=== PATIENT | female | born 1935 | race Caucasian/White ===

== ENCOUNTER → 2016-10-14 | Outpatient (CLI) | payer MEDICARE ==
--- NOTE | 2016-10-14 10:54 | PCVCIMAG ---
EXAM: BILATERAL RENAL ULTRASOUND AND LEFT RENAL DUPLEX INDICATION: Hypertension FINDINGS: Right kidney: Surgically absent Left kidney: Length measures 9.8 cm. No hydronephrosis or extensive renal scarring. There is a 1.4 x 1.8 cm hypoechoic focus in the mid to upper pole centrally. This could represent a complex cyst, a small mass, or a dilated calyx with debris. Further evaluation with renal CT examination would be helpful. Left renal duplex: Adequate technical quality. No sonographic evidence of renal artery stenosis. The aortic to renal artery ratio is 0.9. The renal vein is patent. Bladder: No obvious abnormalities. IMPRESSION: Previous right nephrectomy. No left renal artery stenosis. 1.8 cm hypoechoic indeterminate focus mid/upper pole left kidney as described. LOC:[id number]
--- NOTE | 2016-10-14 14:30 | PCVCIMAG ---
APPROVED REPORT Study performed: 10/14/2016 08:23:01 EXAM: Comprehensive 2D, Doppler, and color-flow Echocardiogram Status: routine Other Information Study Quality: Fair Indications Cardiomegaly Hypertension/HDD Renal Disease 2D Dimensions IVSd: 11.48 (7-11mm)LVOT Diam: 16.12 (18-24mm) LVDd: 45.30 mm PWd: 10.85 (7-11mm)Ascending Ao: 30.26 (22-36mm) LVDs: 39.89 (25-40mm) Left Atrium: 43.41 (27-40mm) Aortic Root: 25.67 mm LV Single Plane 4CH: 14.78 % LV Single Plane 2CH: 21.59 %Isabel's LVEF: 18.18 % Biplane EF: 17.2 % Volumes Left Atrial Volume (Systole) Single Plane 4CH: 52.54 mLSingle Plane 2CH: 51.29 mL LA ESV Index: 29.00 mL/m2 Aortic Valve AoV Peak Luciano.: 1.23 m/s AO Peak Gr.: 6.09 mmHgLVOT Max P.90 mmHg LVOT Max V: 0.99 m/s ERIN Vmax: 1.63 cm2 Mitral Valve E/A Ratio: 1.4 MV Decel. Time: 137.96 ms MV E Max Luciano.: 0.93 m/s MV A Luciano.: 0.68 m/s IVRT: 152.25 ms Pulmonary Valve PV Peak Gr.: 1.99 mmHg Tricuspid Valve TR Peak Luciano.: 3.88 m/s TR Peak Gr.: 60.13 mmHg Left Ventricle The left ventricle is normal size. Mild concentric left ventricular hypertrophy. Left ventricular ejection fraction is severely decreased. LVEF is 10-15%. Right Ventricle The right ventricle is normal size. The right ventricular systolic function is normal. Atria The left atrium size is normal. The right atrium size is normal. Aortic Valve The aortic valve is normal in structure. No aortic regurgitation is present. There is no aortic valvular stenosis. Mitral Valve The mitral valve is normal in structure. There is no mitral valve regurgitation noted. No evidence of mitral valve stenosis. Tricuspid Valve The tricuspid valve is normal in structure. Mild to moderate tricuspid regurgitation. Pulmonary artery pressure is 70mmhg. Pulmonic Valve The pulmonary valve is normal in structure. Trace pulmonic regurgitation. Great Vessels The aortic root is normal in size. IVC is normal in size and collapses with >50% inspiration Pericardium There is no pericardial effusion. <Conclusion> The left ventricle is normal size. Mild concentric left ventricular hypertrophy. Left ventricular ejection fraction is severely decreased. LVEF is 10-15%. The right ventricle is normal size. The left atrium size is normal. The right atrium size is normal. The aortic valve is normal in structure. Mild to moderate tricuspid regurgitation. Pulmonary artery pressure is 70mmhg. There is no mitral valve regurgitation noted. The aortic root is normal in size. There is no pericardial effusion.
== END | disposition home or self-care (01) ==
LOC: PCVCIMAG 07:26
PROVIDERS: ATTEND Internal Medicine Cardiovascular Disease
DX: N28.9 Disorder of kidney and ureter, unspecified (principal); I07.1 Rheumatic tricuspid insufficiency; I37.1 Nonrheumatic pulmonary valve insufficiency; I11.0 Hypertensive heart disease with heart failure; I50.21 Acute systolic (congestive) heart failure; Z90.5 Acquired absence of kidney; Z88.2 Allergy status to sulfonamides; Z79.899 Other long term (current) drug therapy
CPT/HCPCS: 76770; 93005; 93306; 93975; G0463

== ENCOUNTER → 2016-11-26 | Outpatient (CLI) | payer MEDICARE ==
--- NOTE | 2016-11-26 16:37 | PCVCIMAG ---
APPROVED REPORT Study performed: 11/26/2016 13:10:13 EXAM: Limited 2D and color flow Echocardiogram Patient Location: Echo lab Status: routine BSA: 1.71 HR: 58 bpmBP: 112/58 mmHg Other Information Study Quality: Adequate Risk Factors: Cardiac Risk Factors: HTN,RENAL DISEASE Indications Cardiomegaly Cardiomyopathy Hypertension/HDD 2D Dimensions LVEF(%): 48.01 (>50%) IVSd: 7.35 (7-11mm)LVOT Diam: 18.89 (18-24mm) LVDd: 48.32 mm PWd: 10.13 (7-11mm)Ascending Ao: 29.95 (22-36mm) LVDs: 36.64 (25-40mm) Left Atrium: 29.37 (27-40mm) Aortic Root: 23.10 mm LV Single Plane 4CH: 28.56 % LV Single Plane 2CH: 47.50 %Isabel's LVEF: 38.03 % Biplane EF: 38.4 % Volumes Left Atrial Volume (Systole) Single Plane 4CH: 34.99 mLSingle Plane 2CH: 90.20 mL Biplane LA Volume: 60.00 mLLA ESV Index: 35.00 mL/m2 Tricuspid Valve TR Peak Luciano.: 2.42 m/s TR Peak Gr.: 23.52 mmHg TV Vmax: 0.50 m/sPA Pressure: 31.00 mmHg Left Ventricle The left ventricle is normal size. There is normal left ventricular wall thickness. Left ventricular systolic function is mild to moderately decreased globallt.. Discordant septal motion. LVEF is 38%. The left ventricular diastolic function is normal. Right Ventricle The right ventricle is normal size. The right ventricular systolic function is normal. Atria Left atrium is mildly dilated. The right atrium size is normal. Aortic Valve The aortic valve is normal in structure. No aortic regurgitation is present. There is no aortic valvular stenosis. Mitral Valve The mitral valve is normal in structure. There is no mitral valve regurgitation noted. No evidence of mitral valve stenosis. Tricuspid Valve The tricuspid valve is normal in structure. Mild tricuspid regurgitation with a PA pressure of 31mmHg. Pulmonic Valve The pulmonary valve is normal in structure. There is no pulmonic valvular regurgitation. Great Vessels The aortic root is normal in size. IVC is normal in size and collapses with >50% inspiration Pericardium There is no pericardial effusion. There is no pleural effusion. <Conclusion> There is normal left ventricular wall thickness. Left ventricular systolic function is mild to moderately decreased globallt.. Discordant septal motion. LVEF is 38%. The left ventricular diastolic function is normal. The right ventricle is normal size. Left atrium is mildly dilated. There is no mitral valve regurgitation noted. Mild tricuspid regurgitation with a PA pressure of 31mmHg. There is no pericardial effusion.
== END | disposition home or self-care (01) ==
LOC: PCVCIMAG 12:53
PROVIDERS: ATTEND Internal Medicine Cardiovascular Disease
DX: I07.1 Rheumatic tricuspid insufficiency (principal); I11.0 Hypertensive heart disease with heart failure; I50.21 Acute systolic (congestive) heart failure; N17.9 Acute kidney failure, unspecified; E87.5 Hyperkalemia; I49.3 Ventricular premature depolarization; I44.7 Left bundle-branch block, unspecified; I42.9 Cardiomyopathy, unspecified; Z90.5 Acquired absence of kidney; Z88.2 Allergy status to sulfonamides; Z88.1 Allergy status to other antibiotic agents; Z79.899 Other long term (current) drug therapy
CPT/HCPCS: 93005; 93308; G0463

== ENCOUNTER → 2017-04-05 | Outpatient (CLI) | payer MEDICARE | END | disposition home or self-care (01) | LOC: PCVCCLINIC 13:07 | PROVIDERS: ATTEND Internal Medicine Cardiovascular Disease | DX: I12.9 Hypertensive chronic kidney disease with stage 1 through stage 4 chronic kidney disease, or unspecified chronic kidney disease (principal); I42.9 Cardiomyopathy, unspecified; N18.3 Chronic kidney disease, stage 3 (moderate); Z79.899 Other long term (current) drug therapy | CPT/HCPCS: 93005; G0463 ==

== ENCOUNTER → 2017-07-14 | Outpatient (CLI) | payer MEDICARE | END | disposition home or self-care (01) | LOC: PCVCIMAG 13:07 | DX: I34.0 Nonrheumatic mitral (valve) insufficiency (principal); I42.9 Cardiomyopathy, unspecified; I12.9 Hypertensive chronic kidney disease with stage 1 through stage 4 chronic kidney disease, or unspecified chronic kidney disease; N18.3 Chronic kidney disease, stage 3 (moderate); I44.7 Left bundle-branch block, unspecified; Z79.899 Other long term (current) drug therapy | CPT/HCPCS: 93005; 93306; G0463 ==

== ENCOUNTER → 2018-01-19 | Outpatient (CLI) | payer MEDICARE | END | disposition home or self-care (01) | LOC: PCVCCLINIC 14:00 | PROVIDERS: ATTEND Internal Medicine Cardiovascular Disease | DX: I42.9 Cardiomyopathy, unspecified (principal); I10 Essential (primary) hypertension; E78.00 Pure hypercholesterolemia, unspecified; I25.10 Atherosclerotic heart disease of native coronary artery without angina pectoris; I44.7 Left bundle-branch block, unspecified | CPT/HCPCS: 93005; G0463 ==

== ENCOUNTER → 2018-01-19 | Outpatient (CLI) | payer MEDICARE ==
--- NOTE | 2018-01-19 15:35 | PCVCIMAG ---
APPROVED REPORT Study performed: 01/19/2018 14:48:20 EXAM: Limited 2D Echocardiogram Patient Location: Echo lab Room #: 2Status: routine BSA: 1.74 HR: 61 bpmBP: 129/81 mmHg Rhythm: LBBB Other Information Study Quality: Adequate Risk Factors: Cardiac Risk Factors: HTN, Hyperlipidemia Indications CAD Cardiomyopathy Hypertension/HDD 2D Dimensions LV Single Plane 4CH: 51.04 % LV Single Plane 2CH: 53.39 % Biplane EF: 49.9 % Tricuspid Valve TR Peak Luciano.: 2.83 m/s TR Peak Gr.: 32.10 mmHg Left Ventricle The left ventricle is normal size. Left ventricular systolic function is low normal. LVEF is 50-55%. Right Ventricle The right ventricle is normal size. The right ventricular systolic function is normal. Atria The left atrium size is normal. The right atrium size is normal. Aortic Valve The aortic valve is normal in structure. No aortic regurgitation is present. There is no aortic valvular stenosis. Mitral Valve The mitral valve is normal in structure. There is no mitral valve regurgitation noted. No evidence of mitral valve stenosis. Tricuspid Valve The tricuspid valve is normal in structure. Trace to mild tricuspid regurgitation with a PA pressure of 39 mmHg. Mild pulmonary hypertension. Pulmonic Valve The pulmonary valve is normal in structure. There is no pulmonic valvular regurgitation. Pericardium There is no pleural effusion. <Conclusion> The left ventricle is normal size. Left ventricular systolic function is low normal. LVEF is 50-55%. The right ventricle is normal size. The left atrium size is normal. The aortic valve is normal in structure. The mitral valve is normal in structure. Trace to mild tricuspid regurgitation with a PA pressure of 39 mmHg. Mild pulmonary hypertension.
== END | disposition home or self-care (01) ==
LOC: PCVCIMAG 17:08
PROVIDERS: ATTEND Internal Medicine Cardiovascular Disease
DX: I10 Essential (primary) hypertension (principal); I42.9 Cardiomyopathy, unspecified; E78.00 Pure hypercholesterolemia, unspecified; I25.10 Atherosclerotic heart disease of native coronary artery without angina pectoris; I44.7 Left bundle-branch block, unspecified; I27.20 Pulmonary hypertension, unspecified
CPT/HCPCS: 93005; 93308; G0463

== ENCOUNTER → 2018-09-07 | Outpatient (CLI) | payer MEDICARE | END | disposition home or self-care (01) | LOC: PCVCCLINIC 13:00 | PROVIDERS: ATTEND Internal Medicine Cardiovascular Disease | DX: I25.10 Atherosclerotic heart disease of native coronary artery without angina pectoris (principal); I42.9 Cardiomyopathy, unspecified; E78.5 Hyperlipidemia, unspecified; I12.9 Hypertensive chronic kidney disease with stage 1 through stage 4 chronic kidney disease, or unspecified chronic kidney disease; N18.3 Chronic kidney disease, stage 3 (moderate); I44.7 Left bundle-branch block, unspecified | CPT/HCPCS: 36415; 80061; 93005; G0463 ==